=== PATIENT | male | born 1995 | race Asian ===

== ENCOUNTER 2018-04-09 09:21 | Emergency (ER) | payer SELFPAY ==
[~2018-04-09] VITALS: Ht 160 cm; Wt 54.5 kg
[2018-04-09] MEDS ORDERED: PROPARACAINE HCL 0.5% 15 ML OPHTHALMIC SOLUTION OS ONE (10:15)
[2018-04-09] MEDS ORDERED: PROPARACAINE/FLUORESCEIN SOD 0.5-0.25% 0.5 ML OPHTHALMIC SOLUTION OS ONE (10:30)
[2018-04-09] MEDS ORDERED: LEVOFLOXACIN OS ONE (10:45)
[2018-04-09] MEDS ORDERED: ERYTHROMYCIN 0.5% 3.5 GM TUBE OPHTHALMIC OINTMENT OS ONE (11:15)
[2018-04-09 11:48] VITALS: BP 124/72
== END 2018-04-09 11:59 | disposition home or self-care (01) ==
LOC: EMS 09:23
DX: H16.9 Unspecified keratitis (principal)
CPT/HCPCS: 99284

== ENCOUNTER 2020-10-14 14:02 | Emergency (ER) | payer OTHER, MEDICAID ==
[~2020-10-14] VITALS: Ht 162.6 cm; Wt 65.9 kg
[2020-10-14 14:12] VITALS: BP 136/86
== END 2020-10-14 15:35 | disposition home or self-care (01) ==
LOC: EMS 14:17
DX: U07.1 COVID-19 (principal); J02.9 Acute pharyngitis, unspecified; R05 Cough
CPT/HCPCS: 99283; U0003